=== PATIENT | female | born 1995 | race Caucasian/White ===

== ENCOUNTER 2024-02-14 17:45 | Outpatient (CLI) | payer OTHER, SELFPAY ==
[2024-02-14 18:38] LABS: Basophils Percent Auto 0.3 % (0.2-1.2); Eosinophils Absolute Auto 0.2 K/mm3 (0-0.3); Eosinophils Percent Auto 2.4 % (0-4.4); Hematocrit 39.1 % (37.0-47.0); Hemoglobin 13.3 g/dL (12.0-15.0); Immature Granulocyte Absolute 0.04 K/mm3 (0.00-0.031); Immature Granulocyte Percent A 0.5 % (0-0.5); Lymphocytes Absolute Auto 1.87 K/mm3 (0.9-3.2); Lymphocytes Percent Auto 24.4 % (18.3-44.2); Mean Corpuscular Hemoglobin 29.1 pg (26-34); Mean Corpuscular Volume 85.6 fl (80-100); Mean Platelet Volume 9.6 fl (7.4-10.4); Monocytes Absolute Auto 0.6 K/mm3 (0.1-0.6); Neutrophils Absolute Auto 4.9 K/mm3 (1.3-6.7); Neutrophils Percent Auto 64.4 % (45.5-73.1); Platelet Count Result 200 k/mm3 (150-375); Red Blood Count 4.57 M/mm3 (4.2-5.4); Red Cell Distribution Width 13.4 % (11.5-14.5); White Blood Count 7.7 K/mm3 (4.5-10.0)
[2024-02-14 19:30] LABS: HIV 1/2 Ab P24 Ag Result Negative (Negative)
[2024-02-14 19:36] LABS: Hepatitis B Surface Antigen Negative (Negative); Rubella IgG Antibody 10.5 IU/ML
[2024-02-15 11:12] LABS: Rapid Plasma Reagin Non-Reactive (NonReactive)
== END 2024-02-14 17:46 | disposition home or self-care (01) ==
LOC: ANHLAB 17:47
PROVIDERS: Visit Provider Student in an Organized Health Care Education/Training Program
DX: N94.89 Other specified conditions associated with female genital organs and menstrual cycle (principal)
CPT/HCPCS: 36415; 84702; 85025; 86592; 86644; 86703; 86747; 86762; 86787; 86850; 86900; 86901; 87086; 87340; G0432

== ENCOUNTER 2024-08-24 11:32 | Inpatient (IN) | payer OTHER, SELFPAY ==
[2024-08-24] VITALS (77 sets, daily range): BP systolic 87–162; BP diastolic 66–132; PULSE 67–113; RESP 16; TEMP 36.6–37.5; O2SAT 96–100; BMI 40.4
[2024-08-24 12:18] LABS: Basophils Percent Auto 0.3 % (0.2-1.2); Eosinophils Absolute Auto 0.1 K/mm3 (0-0.3); Eosinophils Percent Auto 0.5 % (0-4.4); Hematocrit 36.6 % (37.0-47.0); Hemoglobin 12.6 g/dL (12.0-15.0); Lymphocytes Absolute Auto 1.87 K/mm3 (0.9-3.2); Lymphocytes Percent Auto 18.9 % (18.3-44.2); Mean Corpuscular HGB Conc 34.4 g/dl (32-36); Mean Corpuscular Hemoglobin 29.8 pg (26-34); Mean Corpuscular Volume 86.5 fl (80-100); Mean Platelet Volume 9.6 fl (7.4-10.4); Monocytes Absolute Auto 0.5 K/mm3 (0.1-0.6); Monocytes Percent Auto 5.1 % (2.6-8.5); Neutrophils Absolute Auto 7.4 K/mm3 (1.3-6.7); Neutrophils Percent Auto 74.2 % (45.5-73.1); Platelet Count Result 166 k/mm3 (150-375); Red Blood Count 4.23 M/mm3 (4.2-5.4); Red Cell Distribution Width 14.8 % (11.5-14.5); White Blood Count 9.9 K/mm3 (4.5-10.0)
[2024-08-24] MEDS: OXYTOCIN 30 UNITS/NS 500 ML 30 UNITS/500 ML BAG IV CONT (12:23)
[2024-08-24] MEDS: LACTATED RINGERS 1,000 ML 125 ML IV CONT ×2 (12:23→14:24)
--- OUTSIDE RECORDS SUMMARY | 2024-08-24 12:27 | XMS_ITS | Clinical Summary ---
Author Organization [facility] C Address [address] [place] [address] Care Team Providers Care Bottle Inspector Name Role Phone No, Physician Primary Care Provider [phone] Sade Cummings DO Unavailable [phone] Allergies No known active allergies Medications vit37/iron/folic acid (PRENATA ORAL) Take by mouth Active Active Problems No known active problems Resolved Problems Problem Noted Date Diagnosed Date Resolved Date Encounter for supervision of normal in third trimester 10/08/2022 02/08/2023 Overview (01/27/2023): [facility] 02/07/2023 7:30AM Balloon [facility] PRENATALS SENT TO [facility] 12/27/22 Male = Declines CIRC 1st Trimester: [x] Dating Criteria: C/w 1st tri us [x] Labs: OPOS [] Hgb electrophoresis: [x] GC/CT: [x] UCx: [] UDS: [x] Pap: last 2022 (wnl) [x] Genetic Screening: [] CF/SMA carrier screening: [] ASA at 12 weeks: [] HgbA1c (if BMI>30): [] Early 1h GTT (if BMI>40): [] if Rh neg - spouse blood type: [] Rhogam ordered: 2nd Trimester: [x] MSAFP (15-18w) : negative [] Quad sceen (15-18w) [x] Anatomy ultrasound: [x] Placenta Location: no previa [] echo (if DM, monochorionic, IVF, hx CHD) [x] 1h GTT (24w): 85 (PASS) [x] CBC (24w): 13.2/38.5 [] Antibody screen (24w): [] Flu Shot (Feb-May) 3rd Trimester: [] GBS (36w or planned delivery sooner): [x] Tdap (28wks): [] Rhogam (28w if Rh neg): Counseling [] Method of delivery [x] Place of delivery-[facility], preregistered [] Method of contraception (if desires tubal consent obtained) [x] Method of feeding breast [x] Instructor Knitting-[place] Immunizations Immunization Administration Dates Next Due Influenza, Quadrivalent, Kacie l Culture-based MDCK, Preservative Free, Antibiotic Free, Intramuscular 05/30/2022,05/10/2021 Tdap 11/11/2022,12/26/2021 Surgical History Surgery Date Site/Laterality Comments APPENDECTOMY 06/20/2010 - 06/19/2011 Medical History Medical History Date Comments HPV vaccine counseling gardasil completed Family History Medical History Relation Name Comments Stroke Paternal Grandfather Relation Name Status Comments Paternal Grandfather Social History Tobacco Use Types Packs/Day Years Used Date Smoking Tobacco: Never Smokeless Tobacco: Never Tobacco Cessation:Counseling Given: Not Answered AUDIT-C Answer Date Recorded Q1: How often do you have a drink containing alcohol? Never 06/28/2023 Q2: How many drinks containi ng alcohol do you have on a typical day when you are drinking? Patient does not drink Q3: How often do you have si x or more drinks on one occasion? Never 06/28/2023 Personal Safety Answer Date Recorded Getting School Help Needed Not on file 06/17 Comments No Sex and Gender Information Value Date Recorded Sex Assigned at Not on file Legal Sex Female 3:25 PM HEEL DIPPER Gender Identity Not on file Sexual Orientation Not on file Obstetrics History Para Term AB IAB SAB Ectopic Multiple Livin g Live Births 1 1 1 0 0 0 0 0 0 1 1 Date Outcome GA Total Labor Labor/2nd/3rd Weight Sex Type Anes PTL Roslyn A1 A5 Name Clin 023 Term 40w 6d 21h 00m 3.062 kg (6 lb 12 oz) M Vag-S pont Epidur al Alma JUAN Delivery Location:ST Comments:Cook balloon/ pitocin MIL for postdates Comments Menarche at age 14 Blood type: OPOS Inherticore: Not done with 2022 Last Filed Vital Signs Vital Sign Reading Time Taken Comments Blood Pressure 132/82 06/28/2023 11:52 AM HEEL DIPPER Pulse - - Temperature - - Respiratory Rate - - Oxygen Saturation - - Inhaled Oxygen Concentration - - Weight 74.4 kg (164 lb) 06/28/2023 11:52 AM HEEL DIPPER Height 160 cm (5' 3 ) 06/28/2023 11:52 AM HEEL DIPPER Body Mass Index 29.05 06/28/2023 11:52 AM HEEL DIPPER Plan of Treatment Health Maintenance Due Date Last Done Comments Depression Screening 1996 Hepatitis C Screening 1996 Covid-19 Vaccine ( season) 2024 03/26/2023, 05/30/2022, 05/10/2021, Additional history exists Influenza Vaccine (#1) 2024 , 05/30/2022, 05/10/2021 Regular Well Visit/Exam 18-64 06/28/2024 06/28/2023, 07/11/2020 Cervical Cancer Screening 06/28/2026 06/28/2023, DTaP/Tdap/Td Vaccine (9 - Td or Tdap) 11/11/2032 11/11/2022, 12/26/2021, 05/10/2007, Additional history exists Hepatitis B Screening Completed 01/24/1997 , 1996, 1996 Varicella Vaccines Completed 05/10/2007, 12/28/2001 HPV Vaccines Aged Out No longer eligi ble based on patient's age to complete this topic Pneumococcal vaccine <65 Aged Out No longer eligible based on patient's age to complete this topic Procedures Procedure Name Priority Date/Time Associated Diagnosis Comments PAP, REFLEX HPV Routine 06/28/2023 12:21 PM HEEL DIPPER Screening for malignant neoplasm of the cervix from Last 3 Months or Most Recently Relevant to Health Maintenance Results * Pap, reflex HPV (06/28/2023 12:21 PM HEEL DIPPER) Clinical indication Comment [facility] - 01 Comment:NEGATIVE FOR INTRAEP ITHELIAL LESION OR MALIGNANCY. Specimen adequacy: Comment [facility] - 01 Comment: Satisfactory for evaluation. Endocervical and/or squamous metaplastic cells (endocervical component) are present. Clinician provided ICD10 Comment [facility] - Comment:Z12.4 Performed by Comment [facility] - 01 Comment:Emil Cabral , Fibrous Plasterer (ASCP) . . [facility] - 01 Note: Comment [facility] - 01 Comment: The Pap smear is a screening test designed to aid in the detection of premalignant and malignant conditions of the uterine cervix. It is not a diagnostic procedure and should not be used as the sole means of detecting cervical cancer. Both false-positive and false-negative reports do occur. Test methodology Comment [facility] - Comment: This liquid based ThinPrep(R) pap test was screened with the use of an image guided system. . Comment [facility] - Comment: The HPV DNA reflex criteria were not met with this specimen result therefore, no HPV testing was performed. Thin prep 06/28/2023 12:2 1 PM HEEL DIPPER 06/29/2023 Narrative [facility] - 06/30/2023 8:18 AM HEEL DIPPER Performed at: [facility] [id number] Command Center Officer: Raquel Salmon MD, Phone: [phone] Specimen Comment: Source.............Cervix;Endocervix Specimen Comment: No. of containers..01 ThinPrep Vial Ksenia Lewis NP LAB CYTOLOGY ORDERABLES F inal Result [facility] - 01 from Last 3 Months or Most Recently Relevant to Health Maintenance Insurance [facility] PLUS Care Teams Bottle Inspector Relationship Specialty Start Date End Date No, Physician PCP - General 07/11/20 Sade Cummings DO [address] [place] [address] Referring Physician Obstetrics and Gynecology 10/31/22
--- OUTSIDE RECORDS SUMMARY | 2024-08-24 12:27 | XMS_ITS | Referral Summary ---
Author Organization [facility] C Address [address] [place] [address] Care Team Providers Care Patternmaker Grader Name Role Phone No, Physician Primary Care Provider [phone] Sade Cummings DO Unavailable [phone] Allergies No known active allergies Medications vit37/iron/folic acid (PRENATA ORAL) Take by mouth Active Active Problems No known active problems Resolved Problems Problem Noted Date Diagnosed Date Resolved Date Encounter for supervision of normal in third trimester 10/08/2022 02/08/2023 Overview (01/27/2023): [facility] 02/07/2023 7:30AM Balloon [facility] PRENATALS SENT TO [facility] 12/27/22 Male = Declines CIRC 1st Trimester: [...] obtained) [x] Method of feeding breast [x] Wardrobe Stylist-[place] Immunizations Immunization Administration Dates Next Due Influenza, Quadrivalent, Kacie l Culture-based MDCK, Preservative Free, Antibiotic Free, Intramuscular 05/30/2022,05/10/2021 Tdap 11/11/2022,12/26/2021 Social History Tobacco Use Types Packs/Day Years [...] on file Legal Sex Female 3:25 PM ASSOCIATE LOAN OFFICER Gender Identity Not on file Sexual Orientation Not on file Last Filed Vital Signs Vital Sign Reading Time Taken Comments Blood Pressure 132/82 06/28/2023 11:52 AM ASSOCIATE LOAN OFFICER Pulse - - Temperature - - Respiratory Rate - - Oxygen Saturation - - Inhaled Oxygen Concentration - - Weight 74.4 kg (164 lb) 06/28/2023 11:52 AM ASSOCIATE LOAN OFFICER Height 160 cm (5' 3 ) 06/28/2023 11:52 AM ASSOCIATE LOAN OFFICER Body Mass Index 29.05 06/28/2023 11:52 AM ASSOCIATE LOAN OFFICER Plan of Treatment Not on file Procedures Procedure Name Priority Date/Time Associated Diagnosis Comments PAP, REFLEX HPV Routine 06/28/2023 12:21 PM ASSOCIATE LOAN OFFICER Screening for malignant neoplasm of the cervix from Last 3 Months or Most Recently Relevant to Health Maintenance Results * Pap, reflex HPV (06/28/2023 12:21 PM ASSOCIATE LOAN OFFICER) Clinical indication Comment [facility] - Comment:NEGATIVE FOR INTRAEP ITHELIAL LESION OR MALIGNANCY. Specimen adequacy: Comment [facility] - 01 Comment: Satisfactory for evaluation. Endocervical and/or squamous metaplastic cells (endocervical component) are present. Clinician provided ICD10 Comment [facility] - Comment:Z12.4 Performed by Comment [facility] - 01 Comment:Emil Cabral , Vice President Business & Corporate Development (ASCP) . . [facility] - 01 Note: [...] performed. Thin prep 06/28/2023 12:2 1 PM ASSOCIATE LOAN OFFICER 06/29/2023 Narrative [facility] - 06/30/2023 8:18 AM ASSOCIATE LOAN OFFICER Performed at: [address] [id number] Milk Treater: Raquel Salmon MD, Phone: [phone] Specimen Comment: Source.............Cervix;Endocervix Specimen Comment: No. of containers..01 ThinPrep Vial Ksenia Lewis NP LAB CYTOLOGY ORDERABLES F inal Result [facility] from Last 3 Months or Most Recently Relevant to Health Maintenance Insurance [facility] Address: [address] [address] [place] [address] [facility] Address: [address] [address] [place] [id number] Care Teams Patternmaker Grader Relationship Specialty Start Date End Date No, Physician PCP - General 07/11/20 Sade Cummings DO [address] [place] [address] Referring Physician Obstetrics and Gynecology 10/31/22
--- OUTSIDE RECORDS SUMMARY | 2024-08-24 12:27 | XMS_ITS | Clinical Summary ---
Author Organization [facility] Address [address] [place] [address] Phone Care Team Providers Care Bus And Sys Integration Senior Manager Name Role Phone Alia Anand MD Primary Care Provider [phone] Allergies No known active allergies Medications AMPICILLIN PO Take by mouth. Active Active Problems No known active problems Social History Tobacco Use Types Packs/Day Years Used Date Smoking Tobacco: Never Smokeless Tobacco: Never Alcohol Use Standard Drinks/Week Comments Not Asked 0 (1 standard drink = 0.6 oz pur e alcohol) Comments No Sex and Gender Information Value Date Recorded Sex Assigned at Not on file Legal Sex Female 2:52 AM DIRECTOR OF RESTAURANT Gender Identity Not on file Sexual Orientation Not on file Last Filed Vital Signs Vital Sign Reading Time Taken Comments Blood Pressure 118/72 02/03/2015 4:47 PM CDT Pulse 64 02/03/2015 4:47 PM CDT Temperature 37 C (98.6 F) 02/03/2015 4:47 PM CDT Respiratory Rate 14 02/03/2015 4:47 PM CDT Oxygen Saturation 98% 02/03/2015 4:47 PM CDT Inhaled Oxygen Concentration - - Weight 61.2 kg (135 lb) 02/03/2015 4:47 PM CDT Height 160 cm (5' 3 ) 02/03/2015 4:47 PM CDT Body Mass Index 23.91 02/03/2015 4:47 PM CDT Plan of Treatment Health Maintenance Due Date Last Done Comments Hepatitis C Virus (HCV) Screening 1996 TdaP Immunization 1996 Hepatitis B Immunization (1 of 3 - 19+ 3-dose series) 2015 Pap Smear 2017 Influenza Immunization (#1) 2024 SARS-COV-2 Immunization ( season) 2024 Respiratory Syncytial Virus (RSV) Immunization (Adult) (1 - 1-dose 75+ series) 2071 Meningococcal Immunization (ACWY) Aged Out No longer eligible based on patient's age to complete this topic Pneumococcal Immunization Combined Aged Out No longer eligible based on patient's age to complete this topic Rotavirus Immunization Aged Out No lo nger eligible based on patient's age to complete this topic [place] [place] [address] Care Teams Bus And Sys Integration Senior Manager Relationship Specialty Start Date End Date Alia Anand MD [address] [address] PCP - General Family Medicine 02/03/15
--- OUTSIDE RECORDS SUMMARY | 2024-08-24 12:27 | XMS_ITS | Clinical Summary ---
Author Organization [facility] Address [address] [place] [address] Phone Care Team Providers Care Women'S Health Care Nurse Practitioner Name Role Phone Unavailable Primary Care Provider Unavailabl e Allergies No known active allergies Medications No known medications Immunizations Immunization Administration Dates Next Due (ADACEL/BOOSTRIX)(10 YR UP) TDAP VACCINE, 0.5ML, IM 12/26/2021 Social History Tobacco Use Types Packs/Day Years Used Date Smoking Tobacco: Never Smokeless Tobacco: Never Alcohol Use Standard Drinks/Week Comments Not Currently 0 (1 standard drink = 0.6 oz pur e alcohol) Comments Unknown Sex and Gender Information Value Date Recorded Sex Assigned at Not on file Legal Sex Female 6:52 PM CDT Gender Identity Not on file Sexual Orientation Not on file Last Filed Vital Signs Vital Sign Reading Time Taken Comments Blood Pressure 130/85 12/26/2021 6:58 PM CDT Pulse 67 12/26/2021 6:58 PM CDT Temperature 36.8 C (98.3 F) 12/26/2021 6:58 PM CDT Respiratory Rate 20 12/26/2021 6:58 PM CDT Oxygen Saturation 100% 12/26/2021 6:58 PM CDT Inhaled Oxygen Concentration - - Weight 58.1 kg (128 lb) 12/26/2021 6:58 PM CDT Height 160 cm (5' 3 ) 12/26/2021 6:58 PM CDT Body Mass Index 22.67 12/26/2021 6:58 PM CDT Plan of Treatment Health Maintenance Due Date Last Done Comments HEPATITIS B VACCINES (1 of 3 - 19+ 3-dose series) 2015 CERVICAL CANCER SCREENING 2017 INFLUENZA VACCINE (#1) 2024 DTAP/TDAP/TD VACCINES (2 - T d or Tdap) 12/27/2031 12/26/2021 HPV VACCINES Aged Out No longer eligi ble based on patient's age to complete this topic Insurance [facility] [id number] Advance Directives For more information, please contact: [phone] Documents on File Type Date Recorded 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
--- NOTE | 2024-08-24 12:52 | LDADM ---
This patient, Gayle Travis, was admitted to Labor/Delivery/Recovery 103 on 08/24/24 at 11:32. Plans for labor, pain management and were discussed with patient. Patient/family oriented to hospital policies and general routines including ID bracelet, bed and alarms, visiting hours, pain management, procedures, bathroom and other care routines, personal items, smoking policy, room service/diet and guest tray routines, security routines, and visiting hours. Patient/Family are encouraged to report perceived risks to care and to ask questions if they do not understand what they are told or what they should do. See OBIX for further documentation.
[2024-08-24 13:10] LABS: HIV 1/2 Ab P24 Ag Result Negative (Negative)
[2024-08-24 13:36] LABS: Syphilis IgG/IgM Antibody Negative (Negative)
--- NOTE | 2024-08-24 14:06 | WPDANESEPPF ---
Anes - Initial Pre Proc Eval Procedure: labor epidural Date/Time: 08/24/24 14:06 Surgeon: Hilary Stein MD Pre Op Diagnosis: labor pain Pre Op Diagnosis: Induction of Labor Patient Data Age: 29 Gender: F Height: 1.6 m Weight: 103.5 kg Last Vital Signs Temp 37.5 C 08/24/24 12:02 Pulse 71 08/24/24 14:01 BP 152/98 H 08/24/24 14:01 O2 Del Method Room Air 08/24/24 12:51 Allergies Allergy/AdvReac Type Severity Reaction Status Date / Time No Known Allergies Allergy Verified 08/22/24 15:26 Home Medications ?Medication ?Instructions ?Recorded ?Confirmed ?Type vits no.126-ferrous fum 1 tablet PO DAILY 01/30/24 08/24/24 History 28 mg iron-folic acid 800 mcg tablet (Classic ) Laboratory Tests 08/24/24 12:07 WBC 9.9 K/mm3 (4.5-10.0) RBC 4.23 M/mm3 (4.2-5.4) Hgb 12.6 g/dL (12.0-15.0) Hct 36.6 L % (37.0-47.0) MCV 86.5 fl (80-100) MCH 29.8 pg (26-34) MCHC 34.4 g/dl (32-36) RDW 14.8 H % (11.5-14.5) Plt Count 166 k/mm3 (150-375) MPV 9.6 fl (7.4-10.4) Immature Gran % (Auto) 1.0 H % (0-0.5) Neut % (Auto) 74.2 H % (45.5-73.1) Lymph % (Auto) 18.9 % (18.3-44.2) [place] % (Auto) 5.1 % (2.6-8.5) Eos % (Auto) 0.5 % (0-4.4) Baso % (Auto) 0.3 % (0.2-1.2) Lymph # (Auto) 1.87 K/mm3 (0.9-3.2) [place] # (Auto) 0.5 K/mm3 (0.1-0.6) Eos # (Auto) 0.1 K/mm3 (0-0.3) Baso # (Auto) 0.0 K/mm3 (0.0-0.1) Abs Immat Gran (auto) 0.10 H K/mm3 (0.00-0.031) Absolute Neuts (auto) 7.4 H K/mm3 (1.3-6.7) Absolute Nucleated RBC 0.000 K/mm3 (0.0-0.012) Nucleated RBC % 0.0 % (0.0-0.2) Syphilis IgG/IgM Ab Negative (Negative) HIV 1&2 Ab/P24 Ag 4thGn Negative (Negative) Blood Type O Positive Antibody Screen Negative Patient hx anesthesia problems: none Family hx anesthesia problems: none Results Review: All pre-operative results and documents have been reviewed as part of the pre-operative evaluation. [facility] Past Medical History Medical History Suppression of menses Surgical History Surgical History H/O wisdom tooth extraction Hx of appendectomy Family History Family History Grandparent Cerebrovascular accident Social History Social History Smoking status: Former smoker Second hand tobacco smoke exposure: No Alcohol intake: never Substance use: never Substance use type: does not use Do You Feel Safe in your Home?: Yes Lack of Transportation: No Lack of Food: Never True Current Housing: I Have Housing Concerned About Future Housing: No Difficulty Paying Gas/Electric Bills: No Difficulty Paying for Meds: No Currently Unemployed: No Education: Bachelor's Degree Difficulty w/ Childcare or Family Care: No Living arrangements: with family Additional living arrangements comments: Occupation/Education: occupation 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 Informed Consent: The patient's anesthetic plan and its attendant risks and benefits were discussed with the patient/family/POA. Questions were solicited and answers provided to the satisfaction of the patient/family/POA.
--- NOTE | 2024-08-24 17:12 | WPDHPUPDATE1 ---
History and Physical Update Update Date/Time: 08/24/24 17:12 History and Physical has been reviewed, including an updated exam of the patient. There are NO changes in the patient's condition. Risks, benefits, and alternatives have been discussed and questions answered. Patient agrees to proceed with procedure.
--- NOTE | 2024-08-24 17:12 | WPDOBADMIT ---
Obstetrics - Admit Note Admission Note: record reviewed. No pertinent additions to the history and/or any subsequent changes in the physical findings that are not consistent with the expected course of the were found. Additions to the history and/or subsequent changes in the physical findings follow. None.
--- NOTE | 2024-08-24 17:12 | PM.OBPRVD ---
OB - Vaginal Delivery Note Procedure Delivery date: 08/24/24 Induction method: Per Pitocin Protocol Delivery augmentation: Rupture of Membranes Delivery monitor: External FHT and External Uterine Route of delivery: Episiotomy description: None Laceration Description: Perineal - 2nd Degree Delivery repair: chromic Specimen: No Quantitative Blood Loss (ml): 300 Anesthesia type: Epidural Disposition: Floor Complications: No immediate complications Narrative: Patient prepped and draped in usual manner for this procedure. Maternal expulsive efforts readily delivered vertex over intact perineum. Nuchal cord was noted reduced. Rest of baby delivered without difficulty, cord clamped cut and baby was placed on maternal abdomen. Placenta delivered spontaneously. Uterus was well contracted with minimal bleeding. Second-degree laceration was noted and approximated 2-0 chromic to approximate the vaginal tissue running interlocking manner deep tissue was also approximated in a subcuticular of layer to approximate the perineum. Again uterus was noted be contracted with no significant bleeding in the immediate postoperative condition of mother and baby were both excellent. Baby Gestational Age by Date: 40 Infant gender: Male presentation: vertex position: Right Occiput Anterior Placenta delivery description: Spontaneous Cord Vessel Description: 3 Vessels, Nuchal Cord, Tight and Delayed Cord Clamping
[2024-08-24] MEDS: OXYTOCIN 30 UNITS/NS 500 ML 30 UNITS/500 ML BAG 125 UNITS IV CONT (17:28)
[2024-08-24] MEDS: WITCH HAZEL 40 PADS 1 PAD TOPICAL (23:15)
--- NOTE | 2024-08-24 23:42 | PC.NURSE ---
1999- Pt admitted to room #282, oriented to admission packet, room. This RN assited pt to bathroom to void and assist with dameon-care. Pt tolerated well. 1 unmeasured void.
[2024-08-25 01:54] VITALS: BP 122/76; PULSE 88; RESP 16; TEMP 37; O2SAT 99
[2024-08-25] MEDS: IBUPROFEN 600 MG TABLET PO ×2 (02:39→16:40)
[2024-08-25] MEDS: ACETAMINOPHEN 325 MG TABLET 650 MG PO ×2 (03:00→10:09)
[2024-08-25 05:17] LABS: Hemoglobin 11.3 g/dL (12.0-15.0)
[2024-08-25 07:45] VITALS: BP 131/87; PULSE 74; RESP 18; TEMP 37; O2SAT 98
--- NOTE | 2024-08-25 08:32 | P.DS_ITS ---
DS: Admitting Diagnosis Discharge Date 08/26/2024 Admitting Diagnosis DS: Discharge Diagnosis Discharge Diagnosis (1) , delivered: Code(s): O80 - Encounter for full-term uncomplicated delivery Status: Acute OB - DS: Summary OB Procedures : None OB Procedures Intrapartum: Spontaneous Vag Delivery OB Procedures: : None Peripartum Data Laceration Description: Perineal - 2nd Degree Episiotomy description: None Time Spent with Patient Time attestation: Total time spent providing and/or coordinating discharge services: DS: Data Data Completed and Pending Labs on day of discharge: Labs from last 24 hours 08/25/24 08/24/24 04:26 12:07 WBC 9.9 RBC 4.23 Hgb 11.3 L 12.6 Hct 34.0 L 36.6 L MCV 86.5 MCH 29.8 MCHC 34.4 RDW 14.8 H Plt Count 166 MPV 9.6 Immature Gran % (Auto) 1.0 H Neut % (Auto) 74.2 H Lymph % (Auto) 18.9 [place] % (Auto) 5.1 Eos % (Auto) 0.5 Baso % (Auto) 0.3 Lymph # (Auto) 1.87 [place] # (Auto) 0.5 Eos # (Auto) 0.1 Baso # (Auto) 0.0 Abs Immat Gran (auto) 0.10 H Absolute Neuts (auto) 7.4 H Absolute Nucleated RBC 0.000 Nucleated RBC % 0.0 Syphilis IgG/IgM Ab Negative HIV 1&2 Ab/P24 Ag 4thGn Negative Blood Type O Positive Antibody Screen Negative Discharge Plan Discharge Discharging Clinician: Willis Montesinos Patient Disposition: Home, Self-Care Activity: may shower, follow weight bearing status and pelvic rest Diet: as tolerated Patient Instructions: Antibiotic Form Patient Language: Portuguese Stand Alone Forms: General Discharge Information Follow-up/Referrals: Hilary Stein MD [Physician] - 4 Weeks UNKNOWN,DOCTOR [Primary Care Provider] - Discharge Medications: New ibuprofen 600 mg Tablet 600 mg PO Q6H PRN (Reason: Cramping) Qty: 30 0RF Continued Classic 28 mg iron- 800 mcg tablet 1 tablet PO DAILY Date of admission: 08/24/24 11:32 Primary Care Provider: UNKNOWN,DOCTOR Admitting Provider: Hilary Stein Attending physician on admission: Hilary Stein Condition: Stable
[2024-08-25] MEDS: MULTIVIT/MIN/PREN/FOL AC/IRON TABLET 1 TAB PO (09:05)
[2024-08-25] MEDS: DOCUSATE SODIUM 100 MG CAPSULE PO ×2 (09:05→16:40)
--- NOTE | 2024-08-25 11:25 | PC.NURSE ---
Introductions were made. Mother made aware that there is support available throughout the day today. Encouraged patient to call out as needed. Resources provided for inpatient and outpatient services with the feeding sheet, mom/baby guide and name/number written on the communication board. Mother voiced understanding of information and will call when there is a request for assistance. Reported to the Primary RN.
[2024-08-25 11:50] VITALS: BP 121/77; PULSE 64; RESP 18; TEMP 36.8; O2SAT 99
[2024-08-25 21:45] VITALS: BP 127/80; PULSE 80; RESP 16; TEMP 37.2; O2SAT 97
--- NOTE | 2024-08-26 03:06 | PC.NURSE ---
Daylight Savings Time For Daylight Savings Time Beginning in the Spring - Clocks are moved ahead. For [facility], the time of change occurs at 0200 hrs. Time is taken from the dining server. This entry on the patient's chart recognizes the change in time reflected during documentation. Example: 2 entries for vital signs may be charted for 0200 hrs.
[2024-08-26] MEDS: ACETAMINOPHEN 325 MG TABLET 650 MG PO (03:38)
[2024-08-26 08:00] VITALS: BP 114/73; PULSE 77; RESP 16; TEMP 36.8; O2SAT 98
[2024-08-26] MEDS: DOCUSATE SODIUM 100 MG CAPSULE PO (09:07)
[2024-08-26] MEDS: IBUPROFEN 600 MG TABLET PO (09:07)
[2024-08-26] MEDS: MULTIVIT/MIN/PREN/FOL AC/IRON TABLET 1 TAB PO (09:07)
[2024-08-27 09:17] VITALS: BP 123/79; PULSE 94; RESP 20; TEMP 36.8; O2SAT 98
== END 2024-08-26 11:20 | disposition home or self-care (01) | DRG 807 ==
LOC: ANHOB2 08-25 08:34 → ANHLDR 08-28 09:28
PROVIDERS: Admitting Provider Obstetrics & Gynecology; Visit Provider Obstetrics & Gynecology
DX: O69.1XX0 Labor and delivery complicated by cord around neck, with compression, not applicable or unspecified (principal); Z37.0 Single live birth; O70.1 Second degree perineal laceration during delivery; Z3A.40 40 weeks gestation of pregnancy
CPT/HCPCS: 36415; 85014; 85018; 85025; 86593; 86703; 86850; 86900; 86901; A9270; G0432; J2590; J2795; J7120

== ENCOUNTER 2024-08-29 20:41 | Outpatient (CLI) | payer OTHER, SELFPAY ==
[2024-08-29] VITALS (9 sets, daily range): BP systolic 116–125; BP diastolic 77–88; PULSE 84–97; O2SAT 98–100; BMI 36.4
--- NOTE | 2024-08-29 20:41 | PC.NURSE ---
Pt arrives to unit with elevated blood pressures at home and headache.
--- OUTSIDE RECORDS SUMMARY | 2024-08-29 20:46 | XMS_ITS | Clinical Summary ---
Author Organization [facility] Address [address] [place] [address] Phone Care Team Providers Care Plater Barrel Name Role Phone Unavailable Primary Care Provider [...] patient's age to complete this topic Insurance [facility] [id number] Advance Directives For more information, please contact: [phone] Documents on File Type Date Recorded Patient Telephone Quotation Clerk Expl anation Advance Directive POA 12/26/2021 7:43 PM
--- OUTSIDE RECORDS SUMMARY | 2024-08-29 20:46 | XMS_ITS | Clinical Summary ---
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
--- OUTSIDE RECORDS SUMMARY | 2024-08-29 20:46 | XMS_ITS | Clinical Summary ---
Author Organization [facility] Address [address] [facility] [place] [address] Care Team Providers Care Director Of Cardiology Name Role Phone No, Physician Primary Care Provider [phone] Sade Cummings DO Unavailable [phone] Allergies No known active allergies Medications vit37/iron/folic acid (PRENATA ORAL) Take by mouth Active Active Problems No known active problems Resolved Problems Problem Noted Date Diagnosed Date Resolved Date Encounter for supervision of normal in third trimester 10/08/2022 02/08/2023 Overview (01/27/2023): [facility] 02/07/2023 7:30AM Balloon [facility] PRENATALS SENT TO [facility] 12/27/22 Male = Declines CIRC [...] obtained) [x] Method of feeding breast [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[place] Immunizations Immunization Administration Dates Next Due Influenza, [...] on file 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 Gender Identity Not on file Sexual Orientation [...] Comments Blood Pressure 132/82 06/28/2023 11:52 AM BREAD SLICER MACHINE Pulse - - Temperature - - Respiratory Rate - - Oxygen Saturation - - Inhaled Oxygen Concentration - - Weight 74.4 kg (164 lb) 06/28/2023 11:52 AM BREAD SLICER MACHINE Height 160 cm (5' 3 ) 06/28/2023 11:52 AM BREAD SLICER MACHINE Body Mass Index 29.05 06/28/2023 11:52 AM BREAD SLICER MACHINE Plan of Treatment Health Maintenance Due Date [...] PAP, REFLEX HPV Routine 06/28/2023 12:21 PM BREAD SLICER MACHINE Screening for malignant neoplasm of the cervix from Last 3 Months or Most Recently Relevant to Health Maintenance Results * Pap, reflex HPV (06/28/2023 12:21 PM BREAD SLICER MACHINE) Clinical indication Comment [facility] - 01 Comment:NEGATIVE FOR INTRAEP ITHELIAL LESION OR MALIGNANCY. Specimen adequacy: Comment [facility] - 01 Comment: Satisfactory for evaluation. Endocervical and/or squamous metaplastic cells (endocervical component) are present. Clinician provided ICD10 Comment [facility] - Comment:Z12.4 Performed by Comment [facility] - 01 Comment:Emil Cabral , Stitcher Standard Machine (ASCP) . . [facility] - 01 Note: [...] performed. Thin prep 06/28/2023 12:2 1 PM BREAD SLICER MACHINE 06/29/2023 Narrative [facility] - 06/30/2023 8:18 AM BREAD SLICER MACHINE Performed at: [facility] [id number] Pastry Supervisor: Raquel Salmon MD, Phone: [phone] Specimen Comment: Source.............Cervix;Endocervix Specimen Comment: No. of containers..01 ThinPrep Vial Ksenia Lewis NP LAB CYTOLOGY ORDERABLES F inal Result [facility] - 01 from Last 3 Months or Most Recently Relevant to Health Maintenance Insurance [facility] CHOICE PLUS [facility] CHOICE PLUS Care Teams Director Of Cardiology Relationship Specialty Start Date End Date No, Physician PCP - General 07/11/20 Sade Cummings DO [address] [place] [address] Referring Physician Obstetrics and Gynecology 10/31/22
--- OUTSIDE RECORDS SUMMARY | 2024-08-29 20:46 | XMS_ITS | Referral Summary ---
Author Organization [facility] Address [address] [place] [address] Care Team Providers Care Rewinder Operator Name Role Phone No, Physician Primary Care Provider [phone] Sade Cummings DO Unavailable Allergies No known active allergies Medications vit37/iron/folic acid (PRENATA ORAL) Take by mouth Active Active Problems No known active problems Resolved Problems Problem Noted Date Diagnosed Date Resolved Date Encounter for supervision of normal in third trimester 10/08/2022 02/08/2023 Overview (01/27/2023): [facility] 02/07/2023 7:30AM Balloon [facility] PRENATALS SENT TO [facility] 12/27/22 Male = Declines CIRC 1st [...] obtained) [x] 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[employer] Immunizations Immunization Administration Dates Next Due Influenza, [...] on file 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 Gender Identity Not on file Sexual Orientation Not on file Last Filed Vital Signs Vital Sign Reading Time Taken Comments Blood Pressure 132/82 06/28/2023 11:52 AM OPTOMETRIST OWNER Pulse - - Temperature - - Respiratory Rate - - Oxygen Saturation - - Inhaled Oxygen Concentration - - Weight 74.4 kg (164 lb) 06/28/2023 11:52 AM OPTOMETRIST OWNER Height 160 cm (5' 3 ) 06/28/2023 11:52 AM OPTOMETRIST OWNER Body Mass Index 29.05 06/28/2023 11:52 AM OPTOMETRIST OWNER Plan of Treatment Not on file Procedures Procedure Name Priority Date/Time Associated Diagnosis Comments PAP, REFLEX HPV Routine 06/28/2023 12:21 PM OPTOMETRIST OWNER Screening for malignant neoplasm of the cervix from Last 3 Months or Most Recently Relevant to Health Maintenance Results * Pap, reflex HPV (06/28/2023 12:21 PM OPTOMETRIST OWNER) Clinical indication Comment [facility] - Comment:NEGATIVE FOR INTRAEP ITHELIAL LESION OR MALIGNANCY. Specimen adequacy: Comment [facility] - 01 Comment: Satisfactory for evaluation. Endocervical and/or squamous metaplastic cells (endocervical component) are present. Clinician provided ICD10 Comment [facility] - Comment:Z12.4 Performed by Comment [facility] - 01 Comment:Emil Cabral , Oceanic Sciences Professor (ASCP) . . [facility] - 01 Note: [...] performed. Thin prep 06/28/2023 12:2 1 PM OPTOMETRIST OWNER 06/29/2023 Narrative [facility] - 06/30/2023 8:18 AM OPTOMETRIST OWNER Performed at: [address] [id number] Line Producer: Raquel Salmon MD, Phone: [phone] Specimen Comment: Source.............Cervix;Endocervix Specimen Comment: No. of containers..01 ThinPrep Vial Ksenia Lewis NP LAB CYTOLOGY ORDERABLES F inal Result [facility] from Last 3 Months or Most Recently Relevant to Health Maintenance Insurance [facility] CHOICE PLUS [facility] CHOICE PLUS [place] [id number] Care Teams Rewinder Operator Relationship Specialty Start Date End Date No, Physician PCP - General 07/11/20 Sade Cummings DO [address] [place] [id number] Referring Physician Obstetrics and Gynecology 10/31/22
[2024-08-29 21:16] LABS: Basophils Absolute Auto 0.1 K/mm3 (0.0-0.1); Basophils Percent Auto 0.6 % (0.2-1.2); Eosinophils Absolute Auto 0.2 K/mm3 (0-0.3); Hematocrit 36.2 % (37.0-47.0); Hemoglobin 12.2 g/dL (12.0-15.0); Immature Granulocyte Absolute 0.09 K/mm3 (0.00-0.031); Immature Granulocyte Percent A 0.9 % (0-0.5); Lymphocytes Absolute Auto 1.98 K/mm3 (0.9-3.2); Lymphocytes Percent Auto 18.9 % (18.3-44.2); Mean Corpuscular HGB Conc 33.7 g/dl (32-36); Mean Corpuscular Hemoglobin 29.1 pg (26-34); Mean Corpuscular Volume 86.4 fl (80-100); Monocytes Absolute Auto 0.6 K/mm3 (0.1-0.6); Monocytes Percent Auto 6.1 % (2.6-8.5); Neutrophils Absolute Auto 7.5 K/mm3 (1.3-6.7); Neutrophils Percent Auto 71.5 % (45.5-73.1); Platelet Count Result 233 k/mm3 (150-375); Red Blood Count 4.19 M/mm3 (4.2-5.4); Red Cell Distribution Width 14.4 % (11.5-14.5); White Blood Count 10.5 K/mm3 (4.5-10.0)
[2024-08-29 21:27] LABS: Alanine Aminotransferase 20 U/L (6-35); Albumin Level 3.8 g/dL (3.5-5.1); Alkaline Phosphatase 176 U/L (38-126); Anion Gap 11 mmol/L (4-12); Aspartate Amino Transferase 22 U/L (14-36); Bilirubin,Total 0.6 mg/dL (0.2-1.3); Blood Urea Nitrogen 9 mg/dL (7-17); Calcium 8.8 mg/dL (8.4-10.2); Carbon Dioxide 20 mmol/L (22-30); Chloride 107 mmol/L (98-107); Estimated CRCL calculation 131 ml/min; Estimated Glomerular Filt Rate > 60; Glucose 97 mg/dL (65-110); Sodium 138 mmol/L (137-145); Uric Acid 5.3 mg/dL (2.5-7.5)
--- NOTE | 2024-08-29 21:33 | PC.NURSE ---
Called Dr. Torres, update on pt, elevated blood pressures at home, headache, blood pressure, and labs. Orders received to discharge pt with instructions to take Tylenol as needed, drink 2 liters of water a day, rest, and when to return to the unit.
--- NOTE | 2024-08-29 21:42 | PC.NURSE ---
Pt discharged with instructions to take Tylenol as needed, drink 2 liters of water a day, rest, and when to return to the unit, pt verbalizes understanding.
--- NOTE | 2024-08-30 07:24 | P.PNOB_ITS ---
OB - Triage/Final Diagnosis Visit Information Date of evaluation: 08/29/24 Reason for evaluation: other (elevated BP) Comments/Additional reasons for admission: I have assessed the risk for this patient, Gayle Travis, and determined that she would benefit from observation care. Evaluation Laboratory results: Laboratory Tests 08/29/24 20:57 WBC 10.5 H RBC 4.19 L Hgb 12.2 Hct 36.2 L MCV 86.4 MCH 29.1 MCHC 33.7 RDW 14.4 Plt Count 233 MPV 9.0 Immature Gran % (Auto) 0.9 H Neut % (Auto) 71.5 Lymph % (Auto) 18.9 Burnett % (Auto) 6.1 Eos % (Auto) 2.0 Baso % (Auto) 0.6 Lymph # (Auto) 1.98 Burnett # (Auto) 0.6 Eos # (Auto) 0.2 Baso # (Auto) 0.1 Abs Immat Gran (auto) 0.09 H Absolute Neuts (auto) 7.5 H Absolute Nucleated RBC 0.000 Nucleated RBC % 0.0 Sodium 138 Potassium 4.0 Chloride 107 Carbon Dioxide 20 L Anion Gap 11 BUN 9 Creatinine 0.59 L Estim Creat Clear Calc 131 Estimated GFR > 60 Glucose 97 Uric Acid 5.3 Calcium 8.8 Total Bilirubin 0.6 AST 22 ALT 20 Alkaline Phosphatase 176 H Total Protein 7.0 Albumin 3.8 Vital signs: Vital Signs - 24 hr 08/29/24 21:06 08/29/24 21:08 08/29/24 21:11 Pulse Rate 93 Blood Pressure 125/88 Blood Pressure [Left Arm] Pulse Oximetry 100 99 08/29/24 21:13 08/29/24 21:16 08/29/24 21:21 Pulse Rate 90 93 Blood Pressure 116/77 Blood Pressure [Left Arm] 125/88 Pulse Oximetry 98 99 08/29/24 21:26 08/29/24 21:31 08/29/24 21:36 Pulse Rate Blood Pressure Blood Pressure [Left Arm] Pulse Oximetry 100 98 100
== END 2024-08-29 21:42 | disposition home or self-care (01) ==
LOC: ANHOBOP 20:45 → ANHOBPP 20:46
PROVIDERS: Student in an Organized Health Care Education/Training Program; Visit Provider Obstetrics & Gynecology
DX: O13.9 Gestational [pregnancy-induced] hypertension without significant proteinuria, unspecified trimester (principal); Z3A.00 Weeks of gestation of pregnancy not specified
CPT/HCPCS: 36415; 80053; 84550; 85025